=== PATIENT | male | born 1985 | race Caucasian/White ===

== ENCOUNTER 2017-06-13 14:43 | Emergency (ER) | payer SELFPAY ==
[~2017-06-13] VITALS: Ht 167.6 cm; Wt 102.0 kg
[2017-06-13 15:49] VITALS: BP 164/102
== END 2017-06-13 20:56 | disposition left against medical advice (07) ==
LOC: ER 15:43
DX: H92.02 Otalgia, left ear (principal); R51 Headache
CPT/HCPCS: 99281